=== PATIENT | female | born 1935 | race Caucasian/White ===

== ENCOUNTER 2020-05-31 16:25 | Emergency (ER) | payer MEDICARE, OTHER ==
[~2020-05-31] VITALS: Ht 147.3 cm; Wt 59.0 kg
[~2020-05-31 16:25] MED LIST: ALBU-136 IH; ASPI-1822 PO; BUDE1AER2 IH; GLIM2TAB PO; METF500T PO; MONT10TA35 PO; OMEP40EC24 PO; SIMV20TA1 PO; SITA100T8 PO
[2020-05-31 16:33] VITALS: BP 100/63
[2020-05-31] MEDS ORDERED: NACL 0.9% 500 ML IV ONE (16:45)
[2020-05-31] MEDS ORDERED: ACETAMINOPHEN 325 MG TAB PO ONE (16:45)
[2020-05-31 17:11] LABS: BASOPHILS % (AUTO) 0.8 % (0.0-2.0); EOSINOPHILS % (AUTO) 0.5 % (0.0-4.0); HEMATOCRIT 42.3 % (36-48); HEMOGLOBIN 14.1 g/dL (12.0-16.0); LYMPHOCYTES # (AUTO) 1.6 K/uL (2.5-16.5); LYMPHOCYTES % (AUTO) 26.8 % (20.5-51.1); MEAN CORPUSCULAR HEMOGLOBIN 31 pg (27-31); MEAN CORPUSCULAR HGB CONC 33 g/dL (33-37); MEAN CORPUSCULAR VOLUME 92.9 fL (80-94); MONOCYTES # (AUTO) 0.6 K/uL (0.8-1.0); MONOCYTES % (AUTO) 9.9 % (1.7-9.3); NEUTROPHILS # (AUTO) 3.7 K/uL (1.8-7.7); PLATELET COUNT (AUTO) 267 K/uL (140-450); RED BLOOD CELL COUNT(AUTO) 4.55 MIL/uL (4.20-5.40); RED CELL DISTRIBUTION WIDTH 13.7 % (11.6-13.7); WHITE BLOOD COUNT (AUTO) 5.9 K/uL (4.8-10.8)
--- NOTE | 2020-05-31 17:16 | NUR ---
85 Y/O FEMALE C/O FEVER/BODY ACHES/ WEAKNESS AND DIZZINESS. PATIENT DENIES ANY N/V/D, RESP DIFFICULTY, COUGH OR CONTACT WITH SICK PEOPLE. RESP ARE EVEN AND UNLABORED, LUNG SOUNDS CLEAR BILAT. PATIENT IS AAOX2 (AT BASELINE). NO PAIN REPORTED AT THIS TIME. AMBULATORY WITH CANE. SKIN COOL/DRY/INTACT.
[2020-05-31 17:24] LABS: ALBUMIN 3.3 g/dL (3.4-5.0); ANION GAP 15.1 (8-16); ASPARTATE AMINOTRANSFERASE 30 U/L (15-37); CARBON DIOXIDE 26.7 mmol/L (21-32); CHLORIDE 96 mmol/L (98-107); CREATININE 0.7 mg/dL (0.6-1.3); GLUCOSE 116 mg/dL (74-106); POTASSIUM 3.8 mmol/L (3.5-5.1); SODIUM SERUM 134 mmol/L (136-145); TOTAL BILIRUBIN 0.4 mg/dL (0.0-1.0); UREA NITROGEN, BLOOD 15 mg/dL (7-18)
[2020-05-31 18:09] LABS: APPEARANCE,URINE CLEAR (CLEAR); BILIRUBIN,URINE NEGATIVE (NEGATIVE); BLOOD, URINE NEGATIVE (NEGATIVE); COLOR,URINE YELLOW (YELLOW); LEUKOCYTE ESTERASE ,URINE NEGATIVE (NEGATIVE); NITRITE, URINE NEGATIVE (NEGATIVE); PH,URINE 5.5 (5.0-9.0); UGLUCOSE 3+ (NEGATIVE)
[2020-05-31 18:52] VITALS: BP 105/59
--- NOTE | 2020-05-31 18:52 | NUR ---
Patient discharged with v/s stable. Written and verbal after care instructions given and explained. Patient verbalized understanding. Ambulatory with by caregiver. All questions addressed prior to discharge. Advised to follow up with PMD.
--- NOTE | 2020-06-01 17:48 | NUR ---
LATE ENTRY -- CONFIRMED WITH RN NORMAL SALINE END TIME OF 1813 05/31/20
== END 2020-05-31 18:52 | disposition home or self-care (01) ==
LOC: MED 16:25
DX: B34.9 Viral infection, unspecified (principal); J44.9 Chronic obstructive pulmonary disease, unspecified; E11.9 Type 2 diabetes mellitus without complications; I10 Essential (primary) hypertension; Z88.0 Allergy status to penicillin; Z79.84 Long term (current) use of oral hypoglycemic drugs; Z79.82 Long term (current) use of aspirin
CPT/HCPCS: 36415; 71045; 80053; 81003; 83880; 84484; 85025; 87040; 87086; 87426; 87804; 93005; 96360; 99285; Q0092

== ENCOUNTER 2020-06-07 18:54 | Inpatient (IN) | payer OTHER, MEDICARE, SELFPAY ==
[~2020-06-07] VITALS: Ht 157.5 cm; Wt 68.0 kg
[2020-06-07 19:12] VITALS: BP 112/76
[2020-06-07] MEDS ORDERED: NACL 0.9% 500 ML IV SCH (19:19)
[2020-06-07 19:40] LABS: BASOPHILS % (AUTO) 0.4 % (0.0-2.0); EOSINOPHILS # (AUTO) 0.1 K/uL (0-0.4); EOSINOPHILS % (AUTO) 0.8 % (0.0-4.0); HEMATOCRIT 38.1 % (36-48); HEMOGLOBIN 12.9 g/dL (12.0-16.0); LYMPHOCYTES # (AUTO) 2.2 K/uL (2.5-16.5); LYMPHOCYTES % (AUTO) 19.9 % (20.5-51.1); MEAN CORPUSCULAR HEMOGLOBIN 31 pg (27-31); MEAN CORPUSCULAR HGB CONC 34 g/dL (33-37); MEAN CORPUSCULAR VOLUME 91.9 fL (80-94); MONOCYTES # (AUTO) 0.6 K/uL (0.8-1.0); MONOCYTES % (AUTO) 5.4 % (1.7-9.3); NEUTROPHILS # (AUTO) 8.1 K/uL (1.8-7.7); NEUTROPHILS % (AUTO) 73.5 % (42.2-75.2); PLATELET COUNT (AUTO) 371 K/uL (140-450); RED BLOOD CELL COUNT(AUTO) 4.14 MIL/uL (4.20-5.40); RED CELL DISTRIBUTION WIDTH 13.8 % (11.6-13.7)
[2020-06-07 19:50] LABS: ANION GAP 12.4 (8-16); CARBON DIOXIDE 27.5 mmol/L (21-32); CHLORIDE 104 mmol/L (98-107); CREATININE 0.8 mg/dL (0.6-1.3); GLUCOSE 244 mg/dL (74-106); POTASSIUM 3.9 mmol/L (3.5-5.1); SODIUM SERUM 140 mmol/L (136-145); UREA NITROGEN, BLOOD 23 mg/dL (7-18)
[2020-06-07 19:54] LABS: PROTHROMBIN TIME 11.1 secs (10.8-13.4)
[2020-06-07 19:56] LABS: ALBUMIN 3.2 g/dL (3.4-5.0); ASPARTATE AMINOTRANSFERASE 26 U/L (15-37); TOTAL BILIRUBIN 0.3 mg/dL (0.0-1.0)
[2020-06-07] MEDS ORDERED: DEXAMETHASONE 10 MG/ML VIAL IVP ONE (20:30)
[2020-06-07] MEDS ORDERED: AZITHROMYCIN 1,000 MG in DEXTROSE 5% 500 ML IV ONE (20:30)
[2020-06-07] MEDS ORDERED: AZITHROMYCIN 500 MG INJ VIAL IV ONE (21:39)
[2020-06-07] MEDS ORDERED: DEXAMETHASONE 10 MG/ML VIAL ONE (21:41)
[2020-06-07] MEDS ORDERED: LORazepam 2 MG/ML VIAL ONE (21:46)
[2020-06-07] MEDS ORDERED: LORazepam 2 MG/ML VIAL IVP ONE (22:05)
[2020-06-07] MEDS: NACL 0.9% 1,000 ML IV SCH (22:21)
[2020-06-07] MEDS ORDERED: ZOLPIDEM 5 MG TAB PO PRN (22:25)
[2020-06-07] MEDS ORDERED: POTASSIUM CHLORIDE 40 MEQ, LIDOCAINE MPF 1% 25 MG in NACL 0.9% 250 ML IV PRN (22:25)
[2020-06-07] MEDS ORDERED: ONDANSETRON 4 MG/2 ML VIAL IM/IVP PRN (22:25)
[2020-06-07] MEDS ORDERED: ACETAMINOPHEN 325 MG TAB PO PRN (22:25)
[2020-06-07] MEDS ORDERED: DOCUSATE SODIUM 100 MG GELCAP PO PRN (22:25)
[2020-06-07] MEDS ORDERED: HYDROcodone/APAP 7.5/325 MG 1 TAB PO PRN (22:25)
[2020-06-07] MEDS ORDERED: guaiFENesin DM 200/20 MG-10 ML 10 ML UDC PO PRN (22:25)
[2020-06-07] MEDS ORDERED: ALBUTEROL HFA MDI 90 MCG/ACTUATION 8 GM INH PRN (22:30)
[2020-06-07 22:59] LABS: CHOL/HDL RATIO 2.4 (1-4.5); FREE T4 (FREE THYROXINE) 1.18 ng/dL (0.76-1.46); MAGNESIUM 1.8 mg/dL (1.8-2.4); PHOSPHORUS 3.3 mg/dL (2.5-4.9); THYROID STIMULATING HORMONE 0.43 uIU/mL (0.34-3.74)
[2020-06-07] MEDS ORDERED: cefTRIAXone 1,000 MG VIAL ONE (23:01)
[2020-06-08] VITALS: BP 91/51
[2020-06-08 04:00] VITALS: BP 101/50
[2020-06-08 08:00] VITALS: BP 122/70
[2020-06-08 08:27] LABS: BASOPHILS % (AUTO) 0.2 % (0.0-2.0); HEMATOCRIT 38.2 % (36-48); HEMOGLOBIN 12.7 g/dL (12.0-16.0); LYMPHOCYTES % (AUTO) 10.1 % (20.5-51.1); MEAN CORPUSCULAR HEMOGLOBIN 31 pg (27-31); MEAN CORPUSCULAR HGB CONC 33 g/dL (33-37); MONOCYTES # (AUTO) 0.1 K/uL (0.8-1.0); MONOCYTES % (AUTO) 0.8 % (1.7-9.3); NEUTROPHILS # (AUTO) 9.1 K/uL (1.8-7.7); NEUTROPHILS % (AUTO) 88.9 % (42.2-75.2); PLATELET COUNT (AUTO) 334 K/uL (140-450); RED BLOOD CELL COUNT(AUTO) 4.15 MIL/uL (4.20-5.40); RED CELL DISTRIBUTION WIDTH 13.6 % (11.6-13.7); WHITE BLOOD COUNT (AUTO) 10.3 K/uL (4.8-10.8)
[2020-06-08] MEDS ORDERED: DEXAMETHASONE 4 MG TAB PO SCH (09:00)
[2020-06-08 09:03] LABS: ANION GAP 15.4 (8-16); CARBON DIOXIDE 24.7 mmol/L (21-32); CHLORIDE 105 mmol/L (98-107); CREATININE 0.5 mg/dL (0.6-1.3); GLUCOSE 265 mg/dL (74-106); POTASSIUM 4.1 mmol/L (3.5-5.1); SODIUM SERUM 141 mmol/L (136-145); UREA NITROGEN, BLOOD 18 mg/dL (7-18)
[2020-06-08] MEDS: ASPIRIN 81 MG TAB.CHEW PO SCH (09:48)
[2020-06-08] MEDS: PANTOPRAZOLE 40 MG TABEC PO SCH (09:49)
[2020-06-08] MEDS: ASCORBIC ACID 500 MG TAB PO SCH (09:49)
[2020-06-08] MEDS: GLIMEPIRIDE 2 MG TAB PO SCH (09:50)
[2020-06-08] MEDS: ZINC SULF 220 MG CAP PO SCH (09:50)
[2020-06-08] MEDS: MONTELUKAST SODIUM 10 MG TAB PO SCH (09:50)
[2020-06-08] MEDS: AZITHROMYCIN 250 MG TAB PO SCH (09:50)
[2020-06-08] MEDS: SIMVASTATIN 20 MG TAB PO SCH (09:51)
[2020-06-08] MEDS: metFORMIN 500 MG TAB PO SCH ×2 (10:14→17:14)
[2020-06-08 12:00] VITALS: BP 122/73
[2020-06-08 16:00] VITALS: BP 105/58
[2020-06-08] MEDS: NACL 0.9% 1,000 ML IV SCH (17:14)
[2020-06-08 20:00] VITALS: BP 119/61
[2020-06-09] VITALS: BP 91/49
[2020-06-09 04:00] VITALS: BP 96/53
[2020-06-09 07:29] LABS: ANION GAP 12.3 (8-16); CARBON DIOXIDE 27.5 mmol/L (21-32); CHLORIDE 103 mmol/L (98-107); CREATININE 0.6 mg/dL (0.6-1.3); GLUCOSE 265 mg/dL (74-106); POTASSIUM 3.8 mmol/L (3.5-5.1); SODIUM SERUM 139 mmol/L (136-145); UREA NITROGEN, BLOOD 22 mg/dL (7-18)
[2020-06-09 07:38] LABS: BASOPHILS # (AUTO) 0.1 K/uL (0.00-0.22); BASOPHILS % (AUTO) 0.9 % (0.0-2.0); EOSINOPHILS % (AUTO) 0.3 % (0.0-4.0); HEMATOCRIT 34.8 % (36-48); HEMOGLOBIN 11.6 g/dL (12.0-16.0); LYMPHOCYTES # (AUTO) 2.4 K/uL (2.5-16.5); LYMPHOCYTES % (AUTO) 24.1 % (20.5-51.1); MEAN CORPUSCULAR HEMOGLOBIN 31 pg (27-31); MEAN CORPUSCULAR HGB CONC 33 g/dL (33-37); MEAN CORPUSCULAR VOLUME 92.3 fL (80-94); MONOCYTES # (AUTO) 0.5 K/uL (0.8-1.0); MONOCYTES % (AUTO) 5.4 % (1.7-9.3); NEUTROPHILS % (AUTO) 69.3 % (42.2-75.2); PLATELET COUNT (AUTO) 337 K/uL (140-450); RED BLOOD CELL COUNT(AUTO) 3.77 MIL/uL (4.20-5.40); RED CELL DISTRIBUTION WIDTH 13.5 % (11.6-13.7)
[2020-06-09] MEDS: NACL 0.9% 1,000 ML IV SCH ×2 (07:41→17:18)
[2020-06-09 08:00] VITALS: BP 111/63
[2020-06-09] MEDS: MONTELUKAST SODIUM 10 MG TAB PO SCH (09:18)
[2020-06-09] MEDS: ASCORBIC ACID 500 MG TAB PO SCH (09:19)
[2020-06-09] MEDS: metFORMIN 500 MG TAB PO SCH ×2 (09:19→17:18)
[2020-06-09] MEDS: GLIMEPIRIDE 2 MG TAB PO SCH (09:20)
[2020-06-09] MEDS: PANTOPRAZOLE 40 MG TABEC PO SCH (09:20)
[2020-06-09] MEDS: AZITHROMYCIN 250 MG TAB PO SCH (09:20)
[2020-06-09] MEDS: ASPIRIN 81 MG TAB.CHEW PO SCH (09:20)
[2020-06-09] MEDS: SIMVASTATIN 20 MG TAB PO SCH (09:21)
[2020-06-09] MEDS: ZINC SULF 220 MG CAP PO SCH (09:21)
[2020-06-09 12:00] VITALS: BP 103/63
[2020-06-09 12:20] LABS: T4 (THYROXINE) 6.4 ug/dL (4.5-12.0)
[2020-06-09 16:00] VITALS: BP 110/68
== END 2020-06-09 21:30 | disposition left against medical advice (07) | DRG 137 ==
LOC: MED 18:54 → MTU 21:44
PROVIDERS: ADMIT Family Medicine; ATTEND Family Medicine
DX: J69.0 Pneumonitis due to inhalation of food and vomit (principal); A08.4 Viral intestinal infection, unspecified; E44.1 Mild protein-calorie malnutrition; Z68.27 Body mass index [BMI] 27.0-27.9, adult; Z53.29 Procedure and treatment not carried out because of patient's decision for other reasons; Z20.828 Contact with and (suspected) exposure to other viral communicable diseases; E11.9 Type 2 diabetes mellitus without complications; F03.90 Unspecified dementia, unspecified severity, without behavioral disturbance, psychotic disturbance, mood disturbance, and anxiety; I10 Essential (primary) hypertension; E78.5 Hyperlipidemia, unspecified; F32.9 Major depressive disorder, single episode, unspecified; J44.9 Chronic obstructive pulmonary disease, unspecified; R09.02 Hypoxemia; D64.9 Anemia, unspecified; Z88.0 Allergy status to penicillin; Z79.899 Other long term (current) drug therapy; Z79.84 Long term (current) use of oral hypoglycemic drugs; Z90.49 Acquired absence of other specified parts of digestive tract
CPT/HCPCS: 36415; 71045; 80048; 80053; 82150; 82550; 83036; 83605; 83615; 83690; 83735; 83880; 84100; 84436; 84439; 84443; 84479; 84484; 85025; 85379; 85610; 85651; 85730; 86140; 86886; 86900; 86901; 87040; 87081; 87804; 93005; 96365; 96375; 99285; J0456; J0696; J1100; J1644; J2001; J2060; J3480; J7030; J7060; Q0092; U0003-CS

== ENCOUNTER 2021-11-19 23:22 | Inpatient (IN) | payer OTHER, MEDICARE, SELFPAY ==
[~2021-11-19] VITALS: Ht 147.3 cm; Wt 61.2 kg
[~2021-11-19 23:22] MED LIST changes: +ALBU-118 IH; -ALBU-136 IH
[2021-11-19 23:40] VITALS: BP 115/75
--- NOTE | 2021-11-19 23:52 | NUR ---
TO LOBBY FOLLOWING TRIAGE
[2021-11-20 00:15] LABS: BASOPHILS % (AUTO) 0.2 % (0.0-2.0); EOSINOPHILS % (AUTO) 0.1 % (0.0-4.0); HEMATOCRIT 41.1 % (36-48); HEMOGLOBIN 13.6 g/dL (12.0-16.0); LYMPHOCYTES # (AUTO) 0.8 K/uL (2.5-16.5); MEAN CORPUSCULAR HEMOGLOBIN 30 pg (27-31); MEAN CORPUSCULAR HGB CONC 33 g/dL (33-37); MEAN CORPUSCULAR VOLUME 90.8 fL (80-94); MONOCYTES # (AUTO) 0.5 K/uL (0.8-1.0); MONOCYTES % (AUTO) 6.3 % (1.7-9.3); NEUTROPHILS # (AUTO) 6.2 K/uL (1.8-7.7); NEUTROPHILS % (AUTO) 82.4 % (42.2-75.2); PLATELET COUNT (AUTO) 297 K/uL (140-450); RED BLOOD CELL COUNT(AUTO) 4.53 MIL/uL (4.20-5.40); RED CELL DISTRIBUTION WIDTH 13.6 % (11.6-13.7); WHITE BLOOD COUNT (AUTO) 7.6 K/uL (4.8-10.8)
[2021-11-20 00:32] LABS: ALBUMIN 3.5 g/dL (3.4-5.0); ANION GAP 12.8 (8-16); ASPARTATE AMINOTRANSFERASE 10 U/L (15-37); CHLORIDE 95 mmol/L (98-107); CREATININE 0.9 mg/dL (0.6-1.3); POTASSIUM 4.8 mmol/L (3.5-5.1); SODIUM SERUM 130 mmol/L (136-145); TOTAL BILIRUBIN 0.4 mg/dL (0.0-1.0); UREA NITROGEN, BLOOD 29 mg/dL (7-18)
[2021-11-20] MEDS ORDERED: NACL 0.9% 1,000 ML IV ONE ×3 (00:35→00:40)
[2021-11-20 00:39] LABS: GLUCOSE 416 mg/dL (74-106)
--- NOTE | 2021-11-20 01:11 | NUR ---
[facility] PAGED FOR ADMISSION
[2021-11-20] MEDS ORDERED: ACETAMINOPHEN 325 MG TAB PO PRN (01:45)
[2021-11-20] MEDS ORDERED: DEXTROSE 50% 50 ML SYR IVP PRN (01:45)
[2021-11-20] MEDS ORDERED: ALBUTEROL HFA MDI 90 MCG/ACTUATION 8 GM INH PRN (01:45)
[2021-11-20] MEDS: NACL 0.9% 1,000 ML IV SCH ×2 (01:45→11:53)
--- NOTE | 2021-11-20 02:00 | NUR ---
PATIENT TAKEN TO BED 5 VIA W/C, DAUGHTER AT BEDSIDE.
[2021-11-20 02:07] LABS: APPEARANCE,URINE CLEAR (CLEAR); BILIRUBIN,URINE NEGATIVE (NEGATIVE); BLOOD, URINE NEGATIVE (NEGATIVE); COLOR,URINE YELLOW (YELLOW); LEUKOCYTE ESTERASE ,URINE NEGATIVE (NEGATIVE); NITRITE, URINE NEGATIVE (NEGATIVE); UGLUCOSE 3+ (NEGATIVE)
[2021-11-20 02:54] LABS: RBC,URINE 0-5 /HPF (0-5)
--- NOTE | 2021-11-20 03:00 | NUR ---
86 Y/O F BIB DAUGHTER FROM HOME. DAUGHTER AT BEDSIDE TO ANSWER QUESTIONS PT ONLY SPEAKS YI. PT STARTED TO FEEL DIZZY AROUND 1600 ON 11/19/21. PT ALSO HAD A HEADACHE. PT ALSO HAD A HIGH BLOOD SUGAR OVER 400 HX: DIABETES HTN OSTEOPOROSIS RX: HTN MEDS, DIABETIC MEDS, SEE MED REC Addendum: 11/20/21 at 0715 by HUBER 86 Y/O F BIB DAUGHTER FROM HOME. DAUGHTER AT BEDSIDE TO ANSWER QUESTIONS PT ONLY SPEAKS YI. PT STARTED TO FEEL DIZZY AROUND 1600 ON 11/19/21. PT ALSO HAD A HEADACHE. PT ALSO HAD A HIGH BLOOD SUGAR OVER 400 HX: DIABETES HTN OSTEOPOROSIS DEMENTIA RX: HTN MEDS, DIABETIC MEDS, SEE MED REC
[2021-11-20] MEDS: INSULIN LISPRO SLIDING SCALE 100 UNITS/ML VIAL SUBQ PRN ×3 (03:50→17:33)
--- NOTE | 2021-11-20 04:01 | NUR ---
Patient appears to be resting comfortably in bed. Vital Signs within normal limits. Respirations even and unlabored.
--- NOTE | 2021-11-20 05:15 | NUR ---
Patient appears to be resting comfortably in bed. Vital Signs within normal limits. Respirations even and unlabored. DAUGHTER AT BEDSIDE
[2021-11-20] MEDS ORDERED: HYDR25CA32 PO (07:03)
[2021-11-20] MEDS ORDERED: GLIP1TAB38 PO (07:14)
[2021-11-20] MEDS ORDERED: MEMA10TA56 PO (07:14)
[2021-11-20] MEDS ORDERED: ENAL5TAB48 PO (07:14)
[2021-11-20] MEDS ORDERED: PAM10 PO (07:14)
[2021-11-20] MEDS ORDERED: DONE10TA10 PO (07:14)
[2021-11-20] MEDS ORDERED: MEMA1TAB2 PO (07:14)
--- NOTE | 2021-11-20 07:16 | NUR ---
RECEIVED REPORT FROM MITCH [facility]ARD. TRANSFER OF CARE AT THIS TIME.
--- NOTE | 2021-11-20 07:35 | NUR ---
PT SLEEPING IN BED, VISIBLE EQUAL RISE AND FALL OF CHEST, WILL CONTINUE TO MONITOR.
[2021-11-20] MEDS: BLOOD GLUCOSE MONITORING 1 DEV DEV FS SCH ×3 (07:41→17:23)
[2021-11-20] MEDS: metFORMIN 500 MG TAB PO SCH ×2 (08:50→17:30)
[2021-11-20] MEDS ORDERED: ASPIRIN 81 MG TAB.CHEW PO SCH (09:00)
[2021-11-20] MEDS ORDERED: INSULIN LANTUS 100 UNITS/ML 10 ML VIAL SUBQ SCH (09:00)
[2021-11-20] MEDS ORDERED: ENOXAPARIN 40 MG/0.4 ML SYR SUBQ SCH (09:00)
[2021-11-20] MEDS ORDERED: PANTOPRAZOLE 40 MG TABEC PO SCH (09:00)
--- NOTE | 2021-11-20 09:11 | NUR ---
PT SITTING UP IN BED, PROVIDED BREAKFAST TRAY, VSS, WILL CONTINUE TO MONITOR.
--- NOTE | 2021-11-20 11:40 | NUR ---
PT IN BED, HOB LOWERED FOR COMFORT, VSS, WILL CONTINUE TO MONITOR.
[2021-11-20] MEDS ORDERED: MONTELUKAST SODIUM 10 MG TAB PO SCH (17:00)
--- NOTE | 2021-11-20 18:33 | NUR ---
PT PROVIDED WITH DINNER TRAY BEDSIDE
[2021-11-20 18:52] VITALS: BP 136/74
--- NOTE | 2021-11-20 19:15 | NUR ---
Patient discharged with v/s stable. Written and verbal after care instructions given and explained. Patient verbalized understanding. Ambulatory with steady gait. All questions addressed prior to discharge. Advised to follow up with PMD.
[2021-11-20] MEDS ORDERED: SIMVASTATIN 20 MG TAB PO SCH (21:00)
== END 2021-11-20 19:15 | disposition home or self-care (01) | DRG 420 ==
LOC: MED 23:22 → MTU 11-20 01:48
PROVIDERS: ADMIT Hospitalist; ATTEND Hospitalist
DX: E11.65 Type 2 diabetes mellitus with hyperglycemia (principal); F03.90 Unspecified dementia, unspecified severity, without behavioral disturbance, psychotic disturbance, mood disturbance, and anxiety; E78.5 Hyperlipidemia, unspecified; J44.9 Chronic obstructive pulmonary disease, unspecified; I10 Essential (primary) hypertension; K21.9 Gastro-esophageal reflux disease without esophagitis; J45.909 Unspecified asthma, uncomplicated; E86.0 Dehydration; Z20.822 Contact with and (suspected) exposure to COVID-19; Z79.82 Long term (current) use of aspirin; Z79.899 Other long term (current) drug therapy
CPT/HCPCS: 36415; 80053; 81001; 82948; 83036; 85025; 87086; 93005; 96360; 96361; 99285; J1650; J1815

== ENCOUNTER 2022-01-12 12:55 | Emergency (ER) | payer MEDICARE, OTHER ==
[~2022-01-12] VITALS: Ht 149.9 cm; Wt 60.8 kg
[~2022-01-12 12:55] MED LIST changes: +DONE10TA10 PO; +ENAL5TAB48 PO; +HYDR25CA32 PO; +MEMA10TA56 PO; +MEMA1TAB2 PO; +METF-564 PO; -METF500T PO; +PAM10 PO
[2022-01-12 13:04] VITALS: BP 145/60
--- NOTE | 2022-01-12 16:00 | NUR ---
86/F BIB DAUGHTER C/O RIGHT SIDED BACK PAIN, S/P FALLING BACKWARDS ON MONDAY. PAIN CURRENTLY IS RATED 8/10. DENIES HEAD OR NECK INURY OR LOC, REPORTS TAKING TYLENOL FOR PAIN WITH MILD RELIEF. PT DENIES SOB, CHEST PAIN. PT DENIES FEVER OR CHILLS. PMH: DM, HTN, CHOLESTEROL, OSTEOPOROSIS, DEMENTIA ALLERGIES: PENICILLINS
--- NOTE | 2022-01-12 16:38 | NUR ---
PT RESTING IN NO APPARENT DISTRESS, BREATHING EVEN AND UNLABORED, VSS, WILL CONTINUE TO MONITOR
[2022-01-12] MEDS ORDERED: NITR100C7 PO (16:47)
[2022-01-12] MEDS ORDERED: ACETAMINOPHEN 325 MG TAB PO ONE (17:20)
[2022-01-12 17:28] VITALS: BP 128/67
== END 2022-01-12 17:28 | disposition home or self-care (01) ==
LOC: MED 12:55
DX: R07.81 Pleurodynia (principal); E11.9 Type 2 diabetes mellitus without complications; I10 Essential (primary) hypertension; F03.90 Unspecified dementia, unspecified severity, without behavioral disturbance, psychotic disturbance, mood disturbance, and anxiety; Z88.0 Allergy status to penicillin; Z79.84 Long term (current) use of oral hypoglycemic drugs; Z79.82 Long term (current) use of aspirin; Z79.899 Other long term (current) drug therapy; W19.XXXA Unspecified fall, initial encounter; Y93.89 Activity, other specified; Y92.89 Other specified places as the place of occurrence of the external cause; Y99.8 Other external cause status
CPT/HCPCS: 71111; 72080; 81002; 99284

== ENCOUNTER 2022-09-17 03:48 | Observation (INO) | payer OTHER, MEDICARE ==
[~2022-09-17] VITALS: Ht 162.6 cm; Wt 55.3 kg
[~2022-09-17 03:48] MED LIST changes: +METF-346 PO; -METF-564 PO; +NITR100C7 PO; +SIMV-372 PO; -SIMV20TA1 PO
[2022-09-17 03:50] VITALS: BP 159/62
--- NOTE | 2022-09-17 03:51 | NUR ---
PT BROUGHT TO BED 4 VIA SALVADOR FLOOD
--- NOTE | 2022-09-17 03:51 | NUR ---
Patient BIB by [facility] from home. C/O nausea, vomiting x today. Per reported, patient had nausea, vomiting ~ 6-9 hours ETA. At the scence, EKG normal, BS 234, no medication given. PMHx: DM, HTN. HLD, Dementia
--- NOTE | 2022-09-17 03:52 | NUR ---
Dr. Patterson examining patient.
[2022-09-17] MEDS ORDERED: NACL 0.9% 1,000 ML IV ONE ×2 (04:00→15:40)
[2022-09-17] MEDS ORDERED: ONDANSETRON 4 MG/2 ML VIAL IVP ONE (04:00)
[2022-09-17 04:27] LABS: BASOPHILS # (AUTO) 0.1 K/uL (0.00-0.22); BASOPHILS % (AUTO) 0.7 % (0.0-2.0); EOSINOPHILS % (AUTO) 0.4 % (0.0-4.0); HEMATOCRIT 36.7 % (36-48); HEMOGLOBIN 12.2 g/dL (12.0-16.0); LYMPHOCYTES # (AUTO) 2.2 K/uL (2.5-16.5); LYMPHOCYTES % (AUTO) 19.9 % (20.5-51.1); MEAN CORPUSCULAR HEMOGLOBIN 30 pg (27-31); MEAN CORPUSCULAR HGB CONC 33 g/dL (33-37); MEAN CORPUSCULAR VOLUME 89.2 fL (80-94); MONOCYTES # (AUTO) 0.4 K/uL (0.8-1.0); MONOCYTES % (AUTO) 3.5 % (1.7-9.3); NEUTROPHILS # (AUTO) 8.2 K/uL (1.8-7.7); NEUTROPHILS % (AUTO) 75.5 % (42.2-75.2); PLATELET COUNT (AUTO) 210 K/uL (140-450); RED BLOOD CELL COUNT(AUTO) 4.11 MIL/uL (4.20-5.40); RED CELL DISTRIBUTION WIDTH 13.8 % (11.6-13.7); WHITE BLOOD COUNT (AUTO) 10.8 K/uL (4.8-10.8)
[2022-09-17 04:44] LABS: ALBUMIN 3.6 g/dL (3.4-5.0); ANION GAP 14.4 (8-16); ASPARTATE AMINOTRANSFERASE 16 U/L (15-37); CARBON DIOXIDE 28.6 mmol/L (21-32); CHLORIDE 101 mmol/L (98-107); CREATININE 0.5 mg/dL (0.6-1.3); GLUCOSE 277 mg/dL (74-106); LIPASE 76 U/L (73-393); SODIUM SERUM 140 mmol/L (136-145); TOTAL BILIRUBIN 0.4 mg/dL (0.0-1.0); UREA NITROGEN, BLOOD 22 mg/dL (7-18)
[2022-09-17 05:37] LABS: APPEARANCE,URINE CLEAR (CLEAR); BILIRUBIN,URINE NEGATIVE (NEGATIVE); BLOOD, URINE NEGATIVE (NEGATIVE); COLOR,URINE YELLOW (YELLOW); LEUKOCYTE ESTERASE ,URINE NEGATIVE (NEGATIVE); NITRITE, URINE NEGATIVE (NEGATIVE); UGLUCOSE 3+ (NEGATIVE)
[2022-09-17 05:50] LABS: RBC,URINE 0-5 /HPF (0-5); WBC,URINE 0-5 /HPF (0-5)
--- NOTE | 2022-09-17 05:52 | NUR ---
Patient taken to CT scan via gurney.
--- NOTE | 2022-09-17 06:10 | NUR ---
returned from ct
--- NOTE | 2022-09-17 06:11 | NUR ---
DR WEST AT BEDSIDE SPEAKING WITH PATIENT AND FAMILY
[2022-09-17] MEDS ORDERED: ACETAMINOPHEN 325 MG TAB PO ONE (06:15)
--- NOTE | 2022-09-17 06:30 | NUR ---
COVID-19 swab collected and sent to lab.
--- NOTE | 2022-09-17 09:00 | NUR ---
Pt updated on status, waiting for MD. Pt is at normal mentation according to daughter who is at bedside. Pt vss, no ss of acute distress, breathing equal and unlabored, speech clear. Pt on monitor.
--- NOTE | 2022-09-17 09:00 | NUR ---
Pt resting in bed with daughter at bedside. Pt is at baseline mental status (some confusion). Vss, no ss of acute distress, breathing equal and unlabored, speech clear. Call placed for admitting MD as pt does not have orders.
[2022-09-17] MEDS ORDERED: ACETAMINOPHEN 325 MG TAB PO PRN (14:00)
[2022-09-17] MEDS ORDERED: LORazepam 2 MG/ML VIAL IVP PRN (14:00)
[2022-09-17] MEDS ORDERED: NACL 0.9% 1,000 ML IV SCH (14:00)
[2022-09-17] MEDS ORDERED: MORPHINE SULFATE 2 MG/ML SYR IVP PRN (14:00)
[2022-09-17] MEDS ORDERED: ONDANSETRON 4 MG/2 ML VIAL IVP PRN (14:00)
--- NOTE | 2022-09-17 15:30 | NUR ---
Admitting MD at bedside with pt. Family expressed wants to be dc'd. MD gave verbal order for bolus.
[2022-09-17 17:42] VITALS: BP 149/57
--- NOTE | 2022-09-17 17:55 | NUR ---
ACI given and reviewed with pt and grand daughter. Bother verbalized understanding and will follow up with primary. Pt a/o x 4, vss, no ss of acute distress, breathing equal and unlabored, speech clear, normal gait witnessed according to family, IV removed and inspected for patency. Daughter is driving all family members home.
[2022-09-17 18:11] VITALS: BP 135/60
== END 2022-09-17 18:04 | disposition home or self-care (01) ==
LOC: MED 03:48 → INTOOBSV 14:02 → MTU 14:02 → MED 14:02
PROVIDERS: ADMIT Hospitalist; ATTEND Hospitalist
DX: R53.1 Weakness (principal); Z20.822 Contact with and (suspected) exposure to COVID-19; R11.2 Nausea with vomiting, unspecified; R51.9 Headache, unspecified; I10 Essential (primary) hypertension; F03.90 Unspecified dementia, unspecified severity, without behavioral disturbance, psychotic disturbance, mood disturbance, and anxiety; E11.65 Type 2 diabetes mellitus with hyperglycemia; E78.00 Pure hypercholesterolemia, unspecified; Z79.82 Long term (current) use of aspirin; Z79.899 Other long term (current) drug therapy; Z88.0 Allergy status to penicillin
CPT/HCPCS: 36415; 70450; 80053; 81001; 83690; 85025; 87426; 93005; 96361; 96374; 99285; G0378; J2405

== ENCOUNTER 2023-06-08 18:51 | Inpatient (IN) | payer OTHER, MEDICARE ==
[~2023-06-08] VITALS: Ht 152.4 cm; Wt 67.6 kg
[~2023-06-08 18:51] MED LIST changes: +MONT-72 PO; -MONT10TA35 PO
[2023-06-08 19:01] VITALS: BP 156/76; PULSE 69; RESP 14; TEMP 97.5; O2SAT 95
[2023-06-08] MEDS ORDERED: NACL 0.9% 1,000 ML IV ONE (19:40)
[2023-06-08 20:37] LABS: BASOPHILS % (AUTO) 0.5 % (0.0-2.0); EOSINOPHILS # (AUTO) 0.1 K/uL (0-0.4); EOSINOPHILS % (AUTO) 2.1 % (0.0-4.0); HEMATOCRIT 38.8 % (36-48); HEMOGLOBIN 12.9 g/dL (12.0-16.0); LYMPHOCYTES # (AUTO) 2.3 K/uL (2.5-16.5); LYMPHOCYTES % (AUTO) 40.1 % (20.5-51.1); MEAN CORPUSCULAR HEMOGLOBIN 30 pg (27-31); MEAN CORPUSCULAR HGB CONC 33 g/dL (33-37); MEAN CORPUSCULAR VOLUME 90.9 fL (80-94); MONOCYTES # (AUTO) 0.4 K/uL (0.8-1.0); MONOCYTES % (AUTO) 6.3 % (1.7-9.3); NEUTROPHILS # (AUTO) 2.9 K/uL (1.8-7.7); PLATELET COUNT (AUTO) 256 K/uL (140-450); RED BLOOD CELL COUNT(AUTO) 4.27 MIL/uL (4.20-5.40); RED CELL DISTRIBUTION WIDTH 14.2 % (11.6-13.7); WHITE BLOOD COUNT (AUTO) 5.7 K/uL (4.8-10.8)
[2023-06-08 21:00] LABS: ALANINE AMINOTRANSFERASE 13 U/L (12-78); ALBUMIN 3.3 g/dL (3.4-5.0); ALKALINE PHOSPHATASE 58 U/L (50-136); ANION GAP 11.1 (8-16); ASPARTATE AMINOTRANSFERASE 12 U/L (15-37); CALCIUM 9.1 mg/dL (8.5-10.1); CARBON DIOXIDE 27.6 mmol/L (21-32); CHLORIDE 103 mmol/L (98-107); CREATININE 0.6 mg/dL (0.6-1.3); GLUCOSE 150 mg/dL (74-106); POTASSIUM 3.7 mmol/L (3.5-5.1); SODIUM SERUM 138 mmol/L (136-145); TOTAL BILIRUBIN 0.4 mg/dL (0.0-1.0); TOTAL PROTEIN, SERUM 7.4 g/dL (6.4-8.2); UREA NITROGEN, BLOOD 17 mg/dL (7-18)
[2023-06-08 21:00] LABS: APPEARANCE,URINE SLIGHTLY CLOUDY (CLEAR); BILIRUBIN,URINE NEGATIVE (NEGATIVE); BLOOD, URINE TRACE-I (NEGATIVE); COLOR,URINE YELLOW (YELLOW); LEUKOCYTE ESTERASE ,URINE 2+ (NEGATIVE); NITRITE, URINE NEGATIVE (NEGATIVE); PROTEIN,URINE NEGATIVE (NEGATIVE); UGLUCOSE NEGATIVE (NEGATIVE)
[2023-06-08 21:11] LABS: BACTERIA,URINE 10-30 (MOD) /HPF (None Seen); MUCUS,URINE 1+ /LPF (None Seen); SQUAMOUS EPITHELIAL CELL,UR 0-3 (FEW) /LPF (0-3 (FEW))
[2023-06-08] MEDS ORDERED: LEVOFLOXACIN 750 MG/D5W PREMIX 150 ML IV ONE (21:20)
[2023-06-08] MEDS ORDERED: HYDROcodone/APAP 5/325 MG 1 TAB TAB PO PRN (22:15)
[2023-06-08] MEDS ORDERED: POTASSIUM CHLORIDE 10 MEQ TABER PO PRN (22:15)
[2023-06-08] MEDS ORDERED: ONDANSETRON 4 MG/2 ML VIAL IVP PRN (22:15)
[2023-06-08] MEDS ORDERED: MAGNESIUM OXIDE 400 MG TAB PO PRN (22:15)
[2023-06-08] MEDS ORDERED: MAG SULF 2000 MG/WATER PREMIX 50 ML IV PRN (22:15)
[2023-06-08] MEDS ORDERED: ACETAMINOPHEN 325 MG TAB PO PRN (22:15)
[2023-06-08] MEDS ORDERED: KCL 20 MEQ IN 100 mL PREMIX 200 ML IV PRN (22:15)
[2023-06-08 22:21] LABS: FLU A ANTIGEN negative (NEGATIVE); FLU B ANTIGEN NEGATIVE (NEGATIVE)
[2023-06-08] MEDS: NACL 0.9% 1,000 ML IV SCH (22:35)
[2023-06-09] VITALS: BP 112/58; PULSE 70; RESP 18; TEMP 98; O2SAT 96
[2023-06-09] MEDS ORDERED: METF-713 PO (00:48)
[2023-06-09] MEDS ORDERED: QUET25TA PO (00:48)
[2023-06-09] MEDS ORDERED: SITA100T8 PO (00:48)
[2023-06-09 04:00] VITALS: BP 105/63; PULSE 71; RESP 18; TEMP 98.2; O2SAT 97
[2023-06-09 06:31] LABS: BASOPHILS % (AUTO) 0.5 % (0.0-2.0); EOSINOPHILS # (AUTO) 0.1 K/uL (0-0.4); EOSINOPHILS % (AUTO) 1.8 % (0.0-4.0); HEMOGLOBIN 10.7 g/dL (12.0-16.0); LYMPHOCYTES # (AUTO) 1.7 K/uL (2.5-16.5); LYMPHOCYTES % (AUTO) 33.3 % (20.5-51.1); MEAN CORPUSCULAR HEMOGLOBIN 31 pg (27-31); MEAN CORPUSCULAR HGB CONC 33 g/dL (33-37); MEAN CORPUSCULAR VOLUME 91.2 fL (80-94); MONOCYTES # (AUTO) 0.4 K/uL (0.8-1.0); MONOCYTES % (AUTO) 7.6 % (1.7-9.3); NEUTROPHILS % (AUTO) 56.8 % (42.2-75.2); PLATELET COUNT (AUTO) 219 K/uL (140-450); RED BLOOD CELL COUNT(AUTO) 3.51 MIL/uL (4.20-5.40); RED CELL DISTRIBUTION WIDTH 13.9 % (11.6-13.7); WHITE BLOOD COUNT (AUTO) 5.2 K/uL (4.8-10.8)
[2023-06-09 06:39] LABS: ANION GAP 10.1 (8-16); CALCIUM 7.9 mg/dL (8.5-10.1); CARBON DIOXIDE 26.3 mmol/L (21-32); CHLORIDE 108 mmol/L (98-107); CREATININE 0.5 mg/dL (0.6-1.3); GLUCOSE 179 mg/dL (74-106); POTASSIUM 3.4 mmol/L (3.5-5.1); SODIUM SERUM 141 mmol/L (136-145); UREA NITROGEN, BLOOD 12 mg/dL (7-18)
[2023-06-09 06:51] LABS: MAGNESIUM 1.1 mg/dL (1.8-2.4); PHOSPHORUS 2.8 mg/dL (2.5-4.9)
[2023-06-09] MEDS ORDERED: INSULIN LISPRO SLIDING SCALE 100 UNITS/ML VIAL SUBQ PRN (07:45)
[2023-06-09] MEDS ORDERED: DEXTROSE 50% 50 ML SYR IVP PRN (07:45)
[2023-06-09 08:00] VITALS: RESP 18; O2SAT 97
[2023-06-09] MEDS ORDERED: LEVO-481 PO (08:56)
[2023-06-09] MEDS ORDERED: QUEtiapine FUMARATE 25 MG TAB PO SCH (09:00)
[2023-06-09] MEDS ORDERED: DONEPEZIL 10 MG TAB PO SCH (09:00)
[2023-06-09] MEDS ORDERED: ENALAPRIL 5 MG TAB PO SCH (09:00)
[2023-06-09] MEDS ORDERED: DOCUSATE SODIUM 100 MG GELCAP PO SCH (09:00)
[2023-06-09] MEDS ORDERED: ASPIRIN 81 MG TAB.CHEW PO SCH (09:00)
[2023-06-09] MEDS ORDERED: SIMVASTATIN 20 MG TAB PO SCH (09:00)
[2023-06-09] MEDS ORDERED: MEMANTINE 10 MG TAB PO SCH (09:00)
[2023-06-09] MEDS ORDERED: BLOOD GLUCOSE MONITORING 1 DEV DEV FS SCH (11:30)
[2023-06-09] MEDS: NACL 0.9% 1,000 ML IV SCH (12:19)
[2023-06-09 13:22] VITALS: BP 141/60; PULSE 65; RESP 18; TEMP 97.3
[2023-06-09] MEDS ORDERED: LEVOFLOXACIN 500 MG/D5W PREMIX 100 ML IV SCH (21:00)
== END 2023-06-09 14:00 | disposition home or self-care (01) | DRG 463 ==
LOC: MED 18:51 → MTU 22:17
PROVIDERS: ADMIT Internal Medicine; ATTEND Internal Medicine
DX: N39.0 Urinary tract infection, site not specified (principal); E44.0 Moderate protein-calorie malnutrition; F03.90 Unspecified dementia, unspecified severity, without behavioral disturbance, psychotic disturbance, mood disturbance, and anxiety; Z20.822 Contact with and (suspected) exposure to COVID-19; E78.5 Hyperlipidemia, unspecified; I10 Essential (primary) hypertension; E11.9 Type 2 diabetes mellitus without complications; Z88.0 Allergy status to penicillin; Z79.899 Other long term (current) drug therapy; Z68.29 Body mass index [BMI] 29.0-29.9, adult
CPT/HCPCS: 36415; 71045; 80048; 80053; 81001; 82948; 83036; 83735; 84100; 84484; 85025; 87081; 87086; 93005; 96361; 96365; 96366; 97116; 97163-GP; 99285; J1644; J1815; J1956; J3475